=== PATIENT | female | born 1945 | race Hispanic/Latino ===

== ENCOUNTER → 2024-06-07 | Outpatient (REF) | payer MEDICARE ==
[~2024-06-07] MED LIST: ALPHAGAN P5 ML; HYDROXYZINE HCL10 MG PO; LIDODERM PO; METRONIDAZOLE250 MG; OMEGA 3 FISH O1 EACH PO; PANTOPRAZOLE SO40 MG PO; PREDNISOLONE ACE5 ML; VITAMIN B12-FO1 EACH; VITAMIN C
== END ==
LOC: US 11:20
PROVIDERS: ATTEND Urology
DX: R31.21 Asymptomatic microscopic hematuria (principal)
CPT/HCPCS: 74018; 76770; 76857

== ENCOUNTER → 2024-06-20 | Outpatient (REF) | payer MEDICARE | LOC: RAD 16:12 | PROVIDERS: ATTEND Nurse Practitioner Gerontology | DX: M79.602 Pain in left arm (principal); M25.552 Pain in left hip ==

== ENCOUNTER → 2024-08-02 | Outpatient (REF) | payer MEDICARE ==
[~2024-08-02] MED LIST changes: +FUROSEMIDE INJ 10 MG/ML 4 ML VIAL ONE
== END ==
LOC: NM 08:46
PROVIDERS: ATTEND Urology
DX: N27.9 Small kidney, unspecified (principal)
CPT/HCPCS: 78708; A9562; J1938